=== PATIENT | female | born 1995 | race Hispanic/Latino ===

== ENCOUNTER 2022-04-25 13:35 | Emergency (ER) | payer OTHER ==
[~2022-04-25] VITALS: Ht 152.4 cm; Wt 51.3 kg
[2022-04-25] MEDS ORDERED: LACTATED RINGER'S 1,000 ML IV ONE (14:15)
[2022-04-25] MEDS ORDERED: ASPIRIN 325 MG TAB PO ONE (14:15)
[2022-04-25] MEDS ORDERED: SODIUM CHLORIDE FLUSH 10 ML SYR IV PRN (14:15)
[2022-04-25 14:26] LABS: BASOPHILS # (AUTO) 0.1 (0.0-0.1); BASOPHILS % 0.6 % (0.0-1.0); EOSINOPHILS # (AUTO) 0.8 (0.0-0.4); EOSINOPHILS % 8.7 % (0.0-6.0); LYMPHOCYTES # (AUTO) 2.7 (1.0-3.2); LYMPHOCYTES % 31.8 % (18.0-39.1); MEAN CORPUSCULAR HEMOGLOBIN 31.1 pg (28-32); MEAN CORPUSCULAR HGB CONC 31.7 g/dL (31-35); MEAN CORPUSCULAR VOLUME 98.1 fL (81-99); MONOCYTES # (AUTO) 0.5 (0.2-0.8); NEUTROPHILS # (AUTO) 4.5 (2.1-6.9); NEUTROPHILS % 52.6 % (38.7-80.0); PLATELET COUNT 261 x10e3/uL (140-360); RED BLOOD COUNT 4.18 x10e6/uL (3.6-5.1); RED CELL DISTRIBUTION WIDTH 11.9 % (11.7-14.4)
[2022-04-25 14:53] LABS: ALBUMIN 3.9 g/dL (3.5-5.0); ANION GAP 15.9 mmol/L (8-16); CALCIUM 9.3 mg/dL (8.4-10.2); CREATININE, SERUM 0.68 mg/dL (0.57-1.11); POTASSIUM 3.9 mmol/L (3.5-5.1)
[2022-04-25] MEDS ORDERED: ONDANSETRON ODT4 MG PO (15:21)
[2022-04-25 16:56] VITALS: BP 112/83
== END 2022-04-25 15:30 | disposition home or self-care (01) ==
LOC: ER 13:41
DX: R07.89 Other chest pain (principal); R06.02 Shortness of breath; R53.81 Other malaise; F43.10 Post-traumatic stress disorder, unspecified; F17.210 Nicotine dependence, cigarettes, uncomplicated
CPT/HCPCS: 36415; 71045; 80053; 83690; 83880; 84484; 85025; 85379; 93005; 94760; 99284; J7121